=== PATIENT | male | born 2000 | race Caucasian/White ===

== ENCOUNTER 2025-07-19 14:24 | Emergency (ER) | payer OTHER ==
[~2025-07-19] VITALS: Ht 172.7 cm; Wt 86.5 kg
[2025-07-19] MEDS ORDERED: WELL200T PO (14:31)
[2025-07-19] MEDS ORDERED: LEXA1TAB PO (14:31)
[2025-07-19] MEDS ORDERED: VENTAER INH (19:25)
[2025-07-19 19:29] VITALS: BP 122/63; TEMP 97.5; O2SAT 98
== END 2025-07-19 19:30 | disposition home or self-care (01) ==
LOC: M ED 14:24
DX: J45.998 Other asthma (principal); F32.A Depression, unspecified